=== PATIENT | female | born 1955 | race Caucasian/White ===

== ENCOUNTER 2017-08-23 09:28 | Emergency (ER) | payer OTHER ==
[~2017-08-23] VITALS: Ht 167.6 cm; Wt 70.0 kg
[~2017-08-23 09:28] MED LIST: ALBU0.086 INH; ASPI325T PO; ATOR40TA49 PO; AZIT250T43 PO; HYDR200T42 PO; METH2.5 PO; METO25 PO; PRED50TA PO; PROT40TA PO; TRAZ50TA4 PO
[2017-08-23 09:36] VITALS: BP 135/77; PULSE 87; RESP 16; TEMP 98; O2SAT 97
[2017-08-23] MEDS ORDERED: ASPI81CH7 CHEW (09:46)
[2017-08-23] MEDS ORDERED: LORA0.5T PO (09:46)
[2017-08-23] MEDS ORDERED: ALBU1.253 (09:46)
[2017-08-23] MEDS ORDERED: METH2.5T PO (09:46)
[2017-08-23] MEDS ORDERED: TRAZ50TA12 PO (09:46)
[2017-08-23] MEDS ORDERED: ATOR40TA16 PO (09:46)
[2017-08-23] MEDS ORDERED: PLAQ200T PO (09:46)
[2017-08-23] MEDS ORDERED: PROT40TA PO (09:46)
--- NOTE | 2017-08-23 09:53 | PD ---
HPI Chief Complaint: Injury Time Seen by Provider: 09:40 Travel History International Travel<30 days: No Contact w/Intl Traveler<30days: No Traveled to known affect area: No History of Present Illness HPI This is a 61-year-old female here with left foot pain and swelling after a mechanical trip and fall yesterday evening around 6 PM. She denies head injury or loss of consciousness. Patient is not anticoagulated. She reports pain, swelling within the foot. No other injuries. She is reporting pins and needle sensation within the foot. Pain is worse with movement and weightbearing and with acute distress. PFSH Past Medical History Arthritis: Yes (DUE TO LUPUS) Asthma: No Autoimmune Disease: Yes (LUPUS) Blood Disorders: No Anxiety: No Depression: No Heart Rhythm Problems: No Cancer: No Cardiovascular Problems: No High Cholesterol: Yes Chemotherapy: No Chest Pain: No Congestive Heart Failure: No COPD: Yes Cerebrovascular Accident: No Diabetes: No Patient Takes Glucophage: No Diminished Hearing: No Gastrointestinal Disorders: No GERD: Yes Genitourinary: No Headaches: No Hepatitis: No Hiatal Hernia: No Hypertension: No Kidney Stones: No Musculoskeletal: No Neurologic: No Psychiatric: No Reproductive: No Respiratory: Yes (COPD) Myocardial Infarction: No Radiation Therapy: No Renal Failure: No Seizures: No Thyroid Disease: No Ulcer: No ?: Not Past Surgical History Abdominal Surgery: Yes (APPENDECTOMY 1982) AICD: No Appendectomy: Yes Section: Yes Genitourinary Surgery: No Hysterectomy: Yes Pacemaker: No Thoracic Surgery: No Other Surgery: Yes (FEET) Social History Alcohol Use: No Tobacco Use: No Substance Use: No Allergies-Medications (Allergen,Severity, Reaction): Coded Allergies: Sulfa (Sulfonamide Antibiotics) (Verified Adverse Reaction, Intermediate, DIARRHEA, 08/23/17) Reported Meds & Prescriptions Reported Meds & Active Scripts Active Reported Lorazepam 0.5 Mg Tab 0.5 Mg PO Q8H PRN Trazodone (Trazodone HCl) 50 Mg Tab 25 Mg PO HS Protonix (Pantoprazole Sodium) 40 Mg Tab 40 Mg PO DAILY Methotrexate 2.5 Mg Tab 7.5 Mg PO Q7D Plaquenil (Hydroxychloroquine Sulfate) 200 Mg Tab 200 Mg PO BID Take with food Atorvastatin (Atorvastatin Calcium) 40 Mg Tab 40 Mg PO HS Aspirin Children's (Aspirin) 81 Mg Chew 81 Mg CHEW DAILY [Albuterol Sulfate] Review of Systems Except as stated in HPI: all other systems reviewed are Neg Physical Exam Narrative GENERAL: Alert and well-appearing 61-year-old female. SKIN: Warm and dry. HEAD: Normocephalic. Atraumatic EYES: No scleral icterus. No injection or drainage. NECK: Supple, trachea midline. No cervical midline tenderness. CARDIOVASCULAR: Regular rate and rhythm without murmurs, gallops, or rubs. RESPIRATORY: Breath sounds equal bilaterally. No accessory muscle use. GASTROINTESTINAL: Abdomen soft, non-tender, nondistended. MUSCULOSKELETAL: No cyanosis. Left lower extremity: Notable swelling and ecchymosis to the left foot dorsal aspect. 2+ dorsal pedis pulse. Decreased sensation to fine touch in the toes. Sharp touch intact. Extremity is warm. Brisk cap refill. BACK: Nontender without obvious deformity. No CVA tenderness. Data Data Last Documented VS Vital Signs Date Time Temp Pulse Resp B/P (MAP) Pulse Ox O2 Delivery O2 Flow Rate FiO2 08/23/17 09:36 98.0 87 16 135/77 (96) 97 Orders Orders Foot, Complete ([id number]) (08/23/17 ) Splint Or Brace Apply/Monitor (08/23/17 10:28) MDM Medical Decision Making Medical Screen Exam Complete: Yes Emergency Medical Condition: Yes Differential Diagnosis Metatarsal fracture, ligamental/tendon injury, midfoot sprain, Narrative Course 61-year-old female here with left foot pain and swelling after a mechanical trip and fall last night. She does have mild decreased sensation to light touch to the toes. Sharp touch remains intact. Extremity is warm. 2+ dorsal pedis pulse. Brisk cap refill. Able to wiggle his toes. X-ray shows proximal phalanx fracture of the fifth toe. I believe she has significant midfoot sprain as well. She'll be put in a short posterior leg splint and instructed to follow-up with her manager title Dr. Ricks this week. She agrees to plan. Diagnosis Primary Impression: Toe fracture Qualified Codes: S92.512A - Displaced fracture of proximal phalanx of left lesser toe(s), initial encounter for closed fracture Additional Impression: Foot sprain Qualified Codes: S93.602A - Unspecified sprain of left foot, initial encounter Referrals: Renal Dialysis Technician Additional Instructions: Ice and elevate the extremity Follow-up with her manager title. Return to emergency department if he developed new or worsening symptoms as discussed. Disposition: 01 DISCHARGE HOME Condition: Stable Madiha Scott Aug 23, 2017 09:53
--- NOTE | 2017-08-23 10:18 | RADRPT ---
EXAM DATE/TIME: 08/23/2017 09:46 [facility] COMPARISON: No previous studies available for comparison. INDICATIONS : Top and lateral side of left foot pain and bruising, tripped and fell last night. MEDICAL HISTORY : left foot fracture SURGICAL HISTORY : multiple surgeries to left foot ENCOUNTER: Initial ACUITY: 2 days PAIN SCORE: 10/10 LOCATION: Left top and lateral foot FINDINGS: 3 views of the left foot. There is a fracture of the proximal pole of the fifth toe proximal phalanx with 1 mm step-off seen at the lateral cortex. Deformity of the great toe proximal phalanx likely rep resenting sequela of old trauma or arthrosis. There are moderate-sized osteophytes of the great toe m etatarsophalangeal joint along with a central subchondral cyst of the great toe metatarsal head measu ring 9 mm. Widening of the great toe MTP joint suggests chronic bone erosion. There is also evidence of chronic bone erosion and widening of the second toe proximal interphalangeal joint CONCLUSION: 1. Fifth toe proximal phalanx fracture with 1 mm displacement. 2. 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 Mauro Salvador MD on August 23, 2017 at 10:10 Board Certified Radiologist. This report was verified electronically.
== END 2017-08-23 11:28 | disposition home or self-care (01) ==
LOC: PHEFT 09:28
DX: S92.512A Displaced fracture of proximal phalanx of left lesser toe(s), initial encounter for closed fracture (principal); S93.602A Unspecified sprain of left foot, initial encounter; R20.2 Paresthesia of skin; E78.00 Pure hypercholesterolemia, unspecified; K21.9 Gastro-esophageal reflux disease without esophagitis; Z87.39 Personal history of other diseases of the musculoskeletal system and connective tissue; Z86.2 Personal history of diseases of the blood and blood-forming organs and certain disorders involving the immune mechanism; W01.0XXA Fall on same level from slipping, tripping and stumbling without subsequent striking against object, initial encounter
CPT/HCPCS: 29515; 73630; 99283; E0113

== ENCOUNTER 2017-09-07 16:10 | Inpatient (IN) | payer OTHER, MEDICARE ==
[~2017-09-07] VITALS: Ht 170.2 cm; Wt 68.3 kg
[~2017-09-07 16:10] MED LIST changes: -ALBU0.086 INH; +ALBU1.253; -ASPI325T PO; +ASPI81CH7 CHEW; +ATOR40TA16 PO; -ATOR40TA49 PO; -AZIT250T43 PO; -HYDR200T42 PO; +LORA0.5T PO; -METH2.5 PO; +METH2.5T PO; -METO25 PO; +PLAQ200T PO; -PRED50TA PO; +TRAZ50TA12 PO; -TRAZ50TA4 PO
[2017-09-07 16:12] VITALS: BP 185/87; PULSE 82; RESP 14; TEMP 98.5; O2SAT 97
[2017-09-07] MEDS ORDERED: SODIUM CHLORIDE 0.9% FLUSH 10 ML FLUSH IV FLUSH PRN (20:15)
[2017-09-07] MEDS ORDERED: MORPHINE SULFATE 2 MG/ML INJ IV PUSH ONE ×2 (20:15→23:45)
--- NOTE | 2017-09-07 20:26 | PD ---
HPI Chief Complaint: Pain: Acute or Chronic Time Seen by Provider: 20:04 Travel History International Travel<30 days: No Contact w/Intl Traveler<30days: No Traveled to known affect area: No History of Present Illness HPI 61-year-old female who was seen in the emergency department on 08/23/17 and diagnosed with a left fifth toe proximal phalanx fracture with 1 mm displacement from an injury that occurred the day prior, sent here by podiatry for evaluation of increasing pain and swelling to the left foot. Patient reports that she was seen by lens coating technician Dr. Tse on Sunday09/03/17 and it was noted that she had foot swelling at that time. Outpatient MRIs were ordered, however the patient has not yet received insurance approval to have this test done. She reports that since around 2:30 this morning she has had increasing pain to the left foot. She rates the pain as 14 out of 10, constant, worse with movements. She also states that her foot and toes feel numb. She denies any recent injuries other than the fall on 08/23/17. She called her lens coating technician office in the on-call lens coating technician recommended that she present to the emergency department for evaluation. Patient denies history of DVT or PE. No chest pain or dyspnea. She has kept her splint in place and has been using a compression stocking on the left foot/ankle/leg. PFSH Past Medical History Arthritis: Yes (DUE TO LUPUS) Asthma: No Autoimmune Disease: Yes (LUPUS) Blood Disorders: No Anxiety: No Depression: No Heart Rhythm Problems: No Cancer: No Cardiovascular Problems: No High Cholesterol: Yes Chemotherapy: No Chest Pain: No Congestive Heart Failure: No COPD: Yes Cerebrovascular Accident: No Diabetes: No Diminished Hearing: No Gastrointestinal Disorders: No GERD: Yes Genitourinary: No Headaches: No Hepatitis: No Hiatal Hernia: No Hypertension: No Kidney Stones: No Musculoskeletal: No Neurologic: No Psychiatric: No Reproductive: No Respiratory: Yes (COPD) Myocardial Infarction: No Radiation Therapy: No Renal Failure: No Seizures: No Thyroid Disease: No Ulcer: No Past Surgical History Abdominal Surgery: Yes (APPENDECTOMY 1982) AICD: No Appendectomy: Yes Section: Yes Genitourinary Surgery: No Hysterectomy: Yes Pacemaker: No Thoracic Surgery: No Other Surgery: Yes (FEET) Social History Alcohol Use: No Tobacco Use: No Substance Use: No Allergies-Medications (Allergen,Severity, Reaction): Coded Allergies: Sulfa (Sulfonamide Antibiotics) (Verified Adverse Reaction, Intermediate, DIARRHEA, 08/23/17) Reported Meds & Prescriptions Reported Meds & Active Scripts Active Reported Lorazepam 0.5 Mg Tab 0.5 Mg PO Q8H PRN Trazodone (Trazodone HCl) 50 Mg Tab 25 Mg PO HS Protonix (Pantoprazole Sodium) 40 Mg Tab 40 Mg PO DAILY Methotrexate 2.5 Mg Tab 7.5 Mg PO Q7D Plaquenil (Hydroxychloroquine Sulfate) 200 Mg Tab 200 Mg PO BID Take with food Atorvastatin (Atorvastatin Calcium) 40 Mg Tab 40 Mg PO HS Aspirin Children's (Aspirin) 81 Mg Chew 81 Mg CHEW DAILY [Albuterol Sulfate] Review of Systems Except as stated in HPI: all other systems reviewed are Neg Physical Exam Narrative GENERAL: Well-developed, well-nourished, pleasant, comfortable, no apparent distress. SKIN: Focused skin assessment warm/dry. Dorsum of left foot with diffuse ecchymosis. HEAD: Atraumatic. Normocephalic. EYES: Pupils equal and round. No scleral icterus. No injection or drainage. ENT: No nasal bleeding or discharge. Mucous membranes pink and moist. CARDIOVASCULAR: Regular rate and rhythm. Bilateral dorsalis pedis pulses are brisk and equal. RESPIRATORY: No accessory muscle use. Clear to auscultation. Breath sounds equal bilaterally. MUSCULOSKELETAL: Left foot with diffuse swelling with ecchymosis over the dorsum of the foot, no warmth or erythema, no crepitus. Left second and third toes are fused from a surgery several years ago. All compartments in the left foot appear to be supple, however the patient has diffuse tenderness on exam. She also reports diminished sensation in her foot and toes. Bilateral dorsalis pedis pulses are brisk and equal. Bilateral feet are warm with normal appearing capillary refill. Bilateral calves are supple, nontender, no edema in the calves. NEUROLOGICAL: Awake and alert. No obvious cranial nerve deficits. Motor grossly within normal limits. Normal speech. PSYCHIATRIC: Appropriate mood and affect; insight and judgment normal. Data Data Last Documented VS Vital Signs Date Time Temp Pulse Resp B/P (MAP) Pulse Ox O2 Delivery O2 Flow Rate FiO2 09/07/17 22:28 09/07/17 22:28 98 Room Air 09/07/17 21:35 20 09/07/17 16:12 98.5 82 Orders Orders Basic Metabolic Panel (Bmp) (09/07/17 20:13) Complete Blood Count With Diff (09/07/17 20:13) Prothrombin Time / Inr (Pt) (09/07/17 20:13) Act Partial Throm Time (Ptt) (09/07/17 20:13) Iv Access Insert/Monitor (09/07/17 20:13) Ecg Monitoring (09/07/17 20:13) Oximetry (09/07/17 20:13) Sodium Chloride 0.9% Flush (Ns Flush) (09/07/17 20:15) Us Leg Venous Doppler (09/07/17 ) Ankle, Complete ([id number]) (09/07/17 ) Mri Foot W&W/O Contrast (09/07/17 ) Mri Joint Ankle W&W/O Contrast (09/07/17 ) Creatine Kinase (Cpk) (09/07/17 20:13) Morphine Inj (Morphine Inj) (09/07/17 20:15) Gadodiamide Pf Inj (Omniscan Pf Inj) (09/07/17 22:20) Vancomycin Inj (Vancomycin Inj) (09/07/17 23:45) Piperacil-Tazo 4.5 Gm Premix (Zosyn 4.5 (09/07/17 23:45) Morphine Inj (Morphine Inj) (09/07/17 23:45) Admit Order (Ed Use Only) (09/07/17 23:55) Consult Podiatry (09/07/17 ) Labs Laboratory Tests Test 09/07/17 21:00 White Blood Count 6.9 TH/MM3 Red Blood Count 4.17 MIL/MM3 Hemoglobin 12.3 GM/DL Hematocrit 36.2 % Mean Corpuscular Volume 86.9 FL Mean Corpuscular Hemoglobin 29.5 PG Mean Corpuscular Hemoglobin Concent 33.9 % Red Cell Distribution Width 14.7 % Platelet Count 287 TH/MM3 Mean Platelet Volume 9.4 FL Neutrophils (%) (Auto) 52.3 % Lymphocytes (%) (Auto) 33.5 % Monocytes (%) (Auto) 12.1 % Eosinophils (%) (Auto) 1.2 % Basophils (%) (Auto) 0.9 % Neutrophils # (Auto) 3.6 TH/MM3 Lymphocytes # (Auto) 2.3 TH/MM3 Monocytes # (Auto) 0.8 TH/MM3 Eosinophils # (Auto) 0.1 TH/MM3 Basophils # (Auto) 0.1 TH/MM3 CBC Comment DIFF FINAL Differential Comment Prothrombin Time 11.6 SEC Prothromb Time International Ratio 1.1 RATIO Activated Partial Thromboplast Time 26.1 SEC Blood Urea Nitrogen 9 MG/DL Creatinine 0.92 MG/DL Random Glucose 87 MG/DL Calcium Level 9.5 MG/DL Sodium Level 139 MEQ/L Potassium Level 3.5 MEQ/L Chloride Level 103 MEQ/L Carbon Dioxide Level 29.8 MEQ/L Anion Gap 6 MEQ/L Estimat Glomerular Filtration Rate 62 ML/MIN Total Creatine Kinase 129 U/L [facility] Medical Decision Making Medical Screen Exam Complete: Yes Emergency Medical Condition: Yes Differential Diagnosis Hematoma, edema, compartment syndrome, DVT, left foot/ankle sprain Narrative Course Shortly after I assessed the patient, discussed the case with on-call lens coating technician Dr. Brewer who agrees with my plan for labs and MRI. Once these studies are performed, I will contact her with the results. Vital signs show heart rate 82, blood pressure 185/87, pulse ox 97% on room air , oral temp of 98.5F. CBC is unremarkable. BMP is unremarkable. Total CK is 129. Left ankle x-ray: Soft tissue swelling over the lateral malleolus. No acute fracture or joint dislocation. Left lower extremity venous duplex is negative for DVT. MRI left ankle: CONCLUSION: 1. There is diffuse nonspecific edema in the subcutaneous soft tissues that surrounding the ankle. 2. There is normal signal within the bony structures. No evidence of osteomyelitis. MRI left foot: CONCLUSION: 1. Possible osteomyelitis in the fifth metatarsal with marrow edema and some marrow enhancement postcontrast. Patchy marrow edema also present at other locations in the foot without significant marrow enhancement to suggest osteomyelitis. There is soft tissue swelling and some enhancement in the lateral foot possibly related to traumatic injury or inflammatory change. Case again discussed with on-call lens coating technician Dr. Brewer. Patient was given 4 mg of IV morphine with only minimal relief of pain. Again her compartments appear soft. On exam there did not appear to be any open wounds, and the patient denies sustaining any open wounds at the time of her injury on 08/22/17. Plan is to start the patient on IV vancomycin and IV Zosyn and have her admitted for overnight observation for further pain management for uncontrolled left foot pain. Dr. Brewer will evaluate the patient in consultation. Diagnosis Primary Impression: Edema of left foot Additional Impressions: Intractable pain R/O Osteomyelitis Admitting Information Admitting Physician Requests: Observation Go Bryson MD Sep 07, 2017 20:25
--- NOTE | 2017-09-07 20:46 | RADRPT ---
EXAM DATE/TIME: 09/07/2017 20:34 [facility] COMPARISON: No previous studies available for comparison. INDICATIONS : Patient complains of left ankle pain and swelling after fracturing 5th digit on left foot one week ag o. MEDICAL HISTORY : None. SURGICAL HISTORY : None. ENCOUNTER: Initial ACUITY: 1 week PAIN SCORE: 10/10 LOCATION: Left Ankle FINDINGS: Three view exam was performed of the left ankle. The bony structures are in normal alignment. No ev idence of fracture, dislocation. There is soft tissue swelling over the lateral malleolus. The ankle mortise is intact. No radiopaque foreign bodies are seen. Bony mineralization is normal. CONCLUSION: Soft tissue swelling over the lateral malleolus. No acute fracture or joint dislocation. Nikolas Guerrero MD on September 07, 2017 at 20:42 Board Certified Radiologist. This report was verified electronically.
[2017-09-07 21:27] LABS: AUTOMATED NEUTROPHIL # 3.6 TH/MM3 (1.8-7.7); BASOPHIL % 0.9 % (0.0-2.0); EOSINOPHIL % 1.2 % (0.0-4.0); HEMATOCRIT 36.2 % (35.0-46.0); HEMOGLOBIN 12.3 GM/DL (11.6-15.3); LYMPH % 33.5 % (9.0-44.0); LYMPHOCYTE # 2.3 TH/MM3 (1.0-4.8); MEAN CELL VOLUME 86.9 FL (80.0-100.0); MEAN CORPUSCULAR HEMOGLOBIN 29.5 PG (27.0-34.0); MEAN CORPUSCULAR HGB CONC 33.9 % (32.0-36.0); MEAN PLATELET VOLUME 9.4 FL (7.0-11.0); MONO % 12.1 % (0.0-8.0); NEUT % 52.3 % (16.0-70.0); PLATELET COUNT 287 TH/MM3 (150-450); RED BLOOD COUNT 4.17 MIL/MM3 (4.00-5.30); RED CELL DISTRIBUTION WIDTH 14.7 % (11.6-17.2); WHITE BLOOD COUNT 6.9 TH/MM3 (4.0-11.0)
[2017-09-07 21:28] LABS: BASOPHIL # 0.1 TH/MM3 (0-0.2); EOSINOPHIL # 0.1 TH/MM3 (0-0.4); MONOCYTE # 0.8 TH/MM3 (0-0.9)
--- NOTE | 2017-09-07 21:33 | RADRPT ---
EXAM DATE/TIME: 09/07/2017 20:59 [facility] COMPARISON: No previous studies available for comparison. INDICATIONS : Left leg swelling. MEDICAL HISTORY : Chronic obstructive pulmonary disease. Hypercholesterolemia. Gastroesophageal reflux disease. Glas ses. Dyspnea. Arthritis. Lupus. SURGICAL HISTORY : Appendectomy. Hysterectomy. section. Foot surgery. ENCOUNTER: Initial ACUITY: 2 weeks PAIN SCORE: 2/10 LOCATION: Left leg. TECHNIQUE: Venous ultrasound of the leg was performed from the inguinal ligament to the proximal calf. Real-reji e, color Doppler and spectral tracing, compression and augmentation techniques were used. FINDINGS: There is normal compressibility of the deep venous system from the inguinal region to the proximal ca lf. No echogenic clot is seen in the lumen of the common femoral, femoral, popliteal, and posterior tibial veins. There is a normal response of the venous system to proximal and distal augmentation an d respiration. CONCLUSION: No evidence of DVT. Nikolas Guerrero MD on September 07, 2017 at 21:30 Board Certified Radiologist. This report was verified electronically.
[2017-09-07 21:36] LABS: INTERNATIONAL NORMALIZED RATIO 1.1 RATIO; PROTHROMBIN TIME - PATIENT 11.6 SEC (9.8-11.6)
[2017-09-07 21:42] LABS: BICARBONATE 29.8 MEQ/L (21.0-32.0); CALCIUM 9.5 MG/DL (8.5-10.1); CREATININE 0.92 MG/DL (0.50-1.00)
[2017-09-07] MEDS ORDERED: GADODIAMIDE PF 287 MG/ML 5 ML VIAL (for RAD MRI) IV PUSH ONE (22:20)
[2017-09-07 22:28] VITALS: O2SAT 98
--- NOTE | 2017-09-07 22:56 | RADRPT ---
EXAM DATE/TIME: 09/07/2017 22:03 [facility] COMPARISON: ANKLE LEFT COMPLETE ([id number]), September 07, 2017, 20:34. INDICATIONS : Osteomyelitis. CONTRAST: 14 cc Omniscan (gadodiamide) IV MEDICAL HISTORY : Lupus. Chronic obstructive pulmonary disease. SURGICAL HISTORY : Hysterectomy. section. Multiple bi-lateral foot surgeries. ENCOUNTER: Subsequent ACUITY: 2 weeks PAIN SCORE: 7/10 LOCATION: Left ankle. TECHNIQUE: Multiplanar, multisequence MRI examination was performed without contrast and after the intravenous a dministration of gadolinium. FINDINGS: BONE/CARTILAGE: Bone marrow signal is homogeneous. Articular cartilage signal is within normal limits. TENDONS: All of the visualized tendons are intact. LIGAMENTS: The lateral and medial ligament complexes are intact. MISCELLANEOUS: There is nonspecific edema in the subcutaneous soft tissues that surrounds the ankle. The edema exten ds towards the foot. POST-CONTRAST: No abnormal areas of enhancement on the post-contrast images. CONCLUSION: 1. There is diffuse nonspecific edema in the subcutaneous soft tissues that surrounding the ankle. 2. There is normal signal within the bony structures. No evidence of osteomyelitis. Nikolas Guerrero MD on September 07, 2017 at 22:51 Board Certified Radiologist. This report was verified electronically.
--- NOTE | 2017-09-07 23:27 | RADRPT ---
EXAM DATE/TIME: 09/07/2017 22:03 [facility] COMPARISON: No previous studies available for comparison. INDICATIONS : Osteomyelitis. CONTRAST: 14 cc Omniscan (gadodiamide) IV MEDICAL HISTORY : Lupus. Chronic obstructive pulmonary disease. SURGICAL HISTORY : Hysterectomy. section. Multiple bi-lateral foot surgeries. ENCOUNTER: Subsequent ACUITY: 2 weeks PAIN SCORE: 7/10 LOCATION: Left foot TECHNIQUE: Multiplanar, multisequence MRI examination was performed without contrast and after the intravenous a dministration of gadolinium. FINDINGS: There is a fracture of the proximal phalanx of the fifth toe seen on recent plain film. This is assoc iated with marrow edema. There is also some marrow edema in the fifth metatarsal associated with mild marrow enhancement. Patchy edema is also present in the fourth metatarsal. However no marrow enhance ment is seen. There is previous surgery near the first metatarsal head. There is some inflammatory and edematous changes in the lateral foot especially around fracture site. Cannot exclude a cellulitis. CONCLUSION: 1. Possible osteomyelitis in the fifth metatarsal with marrow edema and some marrow enhancement postc ontrast. Patchy marrow edema also present at other locations in the foot without significant marrow e nhancement to suggest osteomyelitis. There is soft tissue swelling and some enhancement in the latera l foot possibly related to traumatic injury or inflammatory change. Micky Velazco MD on September 07, 2017 at 23:13 Board Certified Radiologist. This report was verified electronically.
[2017-09-07] MEDS ORDERED: PIPERACIL-TAZO 4.5 GM PREMIX 100 ML IV ONE (23:45)
[2017-09-07] MEDS ORDERED: VANCOMYCIN INJ 1,000 MG in SODIUM CHLOR 0.9% 250 ML INJ 250 ML IV ONE (23:45)
[2017-09-08] VITALS (7 sets, daily range): BP systolic 108–137; BP diastolic 56–76; PULSE 68–77; RESP 16–20; TEMP 97.6–98.9; O2SAT 98–100
[2017-09-08] MEDS ORDERED: LACTULOSE SYRUP 20 GM/30 ML CUP PO PRN (00:15)
[2017-09-08] MEDS ORDERED: SODIUM CHLORIDE 0.9% FLUSH 10 ML FLUSH IV FLUSH PRN (00:15)
[2017-09-08] MEDS ORDERED: MAGNESIUM HYDROXIDE SUSP 30 ML CUP PO PRN (00:15)
[2017-09-08] MEDS ORDERED: ONDANSETRON HCL 4 MG/2 ML VIAL IVP PRN (00:15)
[2017-09-08] MEDS ORDERED: ACETAMINOPHEN 325 MG TAB PO PRN (00:15)
[2017-09-08] MEDS ORDERED: LORazepam 0.5 MG TAB PO PRN (00:15)
[2017-09-08] MEDS ORDERED: Vancomycin Consult Pharmacy 1 EA OTHER SCH (00:15)
[2017-09-08] MEDS ORDERED: SENNOSIDES 8.6 MG TAB PO PRN (00:15)
[2017-09-08] MEDS ORDERED: BISACODYL 10 MG SUPP RECTAL PRN (00:15)
[2017-09-08] MEDS ORDERED: ACETAMINOPHEN/HYDROcodone 325 MG/5 MG TAB PO PRN (00:15)
[2017-09-08] MEDS ORDERED: PILL SPLITTER OTHER PRN (00:30)
[2017-09-08] MEDS: SODIUM CHLOR 0.9% 1000 ML INJ 1,000 ML IV SCH ×2 (01:13→10:11)
--- NOTE | 2017-09-08 01:59 | HHI.HP ---
[facility] Service [facility] Primary Care Physician Shahzad Sawyer MD Admission Diagnosis intractable left foot pain with swelling, r/o osteomyelitis Diagnoses: (1) Osteomyelitis Diagnosis: Principal (2) Ankle pain Diagnosis: Principal (3) Lupus Diagnosis: Principal Travel History International Travel<30 Days: No Contact w/Intl Traveler <30 Da: No Traveled to Known Affected Are: No History of Present Illness This is a 61-year-old female with a PMH of HTN, Hyperlipidemia, COPD and Lupus who presented to ER with complaints of left foot pain and swelling. Seen in ER on 08/23/17 for similar symptoms, found to have left fifth toe fracture and placed in splint. Seen by Dr. Tse w/ Podiatry on 09/03/17 and was noted to have worsening swelling/pain, unable to undergo MRI as outpatient due to insurance authorization. Today, reports worsening pain. Pain is constant, 10/ 10, sharp, non-radiating, worse w/ movement. On arrival, BP 185/87, HR 82, O2 sat 97% on RA, Afebrile. Skin unremarkable. Chemistry essentially unremarkable except for GFR 62. INR 1.1. Ankle X-ray was soft tissue swelling over lateral malleolus. Ankle MRI with diffuse nonspecific edema. Foot MRI with possible osteomyelitis of fifth metatarsal with marrow edema and marrow enhancement. US LE negative for DVT. Dr. Skaggs consulted, recommended IV Abx w/ likely surgical intervention. Review of Systems Except as stated in HPI: all other systems reviewed are Neg ROS: 14 point review of systems otherwise negative. Past Family Social History Past Medical History PMH: HTN, Hyperlipidemia, COPD and Lupus Past Surgical History PAST SURGICAL HISTORY: Appendectomy , Hysterectomy Allergies: Coded Allergies: Sulfa (Sulfonamide Antibiotics) (Verified Adverse Reaction, Intermediate, DIARRHEA, 08/23/17) Family History PAST FAMILY HISTORY: Reviewed. No h/o DM or CAD Social History PAST SOCIAL HISTORY: Negative for alcohol, tobacco or drugs. Physical Exam Vital Signs Vital Signs Date Time Temp Pulse Resp B/P (MAP) Pulse Ox O2 Delivery O2 Flow Rate FiO2 09/08/17 00:44 09/08/17 00:22 77 17 123/59 (80) 98 Room Air 09/07/17 22:28 09/07/17 22:28 98 Room Air 09/07/17 21:35 20 09/07/17 16:12 98.5 82 14 185/87 (119) 97 Physical Exam PE: GENERAL: Pleasant middle-aged white female in no acute distress. HEENT: PERRLA, EOMI. No scleral icterus or conjunctival pallor. No lid lag or facial droop. CARDIOVASCULAR: Regular rate and rhythm. No obvious murmurs to auscultation. No chest tenderness to palpation. RESPIRATORY: No obvious rhonchi or wheezing. Clear to auscultation. Breath sounds equal bilaterally. GASTROINTESTINAL: Abdomen soft, non-tender, nondistended. BS normal. MUSCULOSKELETAL: Extremities without clubbing, cyanosis, or edema. No obvious deformities. Left foot w/ edema, no significant erythema, mild tenderness. Pulses intact. NEUROLOGICAL: Awake, alert and oriented x4. No focal neurologic deficits. Moving both upper and lower extremities spontaneously. Laboratory Laboratory Tests Test 09/07/17 21:00 White Blood Count 6.9 Red Blood Count 4.17 Hemoglobin 12.3 Hematocrit 36.2 Mean Corpuscular Volume 86.9 Mean Corpuscular Hemoglobin 29.5 Mean Corpuscular Hemoglobin Concent 33.9 Red Cell Distribution Width 14.7 Platelet Count 287 Mean Platelet Volume 9.4 Neutrophils (%) (Auto) 52.3 Lymphocytes (%) (Auto) 33.5 Monocytes (%) (Auto) 12.1 Eosinophils (%) (Auto) 1.2 Basophils (%) (Auto) 0.9 Neutrophils # (Auto) 3.6 Lymphocytes # (Auto) 2.3 Monocytes # (Auto) 0.8 Eosinophils # (Auto) 0.1 Basophils # (Auto) 0.1 CBC Comment DIFF FINAL Differential Comment Prothrombin Time 11.6 Prothromb Time International Ratio 1.1 Activated Partial Thromboplast Time 26.1 Blood Urea Nitrogen 9 Creatinine 0.92 Random Glucose 87 Calcium Level 9.5 Sodium Level 139 Potassium Level 3.5 Chloride Level 103 Carbon Dioxide Level 29.8 Anion Gap 6 Estimat Glomerular Filtration Rate 62 Total Creatine Kinase 129 Result Diagram: 09/07/17209909/07/172099 [facility] Risk Assessment Caprini VTE Risk Assessment: No/Low Risk (score <= 1) Caprini Risk Assessment Model Point Value = 1 Point Value = 2 Point Value = 3 Point Value = 5 Age 41-60 Minor surgery BMI > 25 kg/m2 Swollen legs Varicose veins or History of unexplained or recurrent spontaneous Oral contraceptives or hormone replacement Sepsis (< 1 month) Serious lung disease, including pneumonia (< 1 month) Abnormal pulmonary function Acute myocardial infarction Congestive heart failure (< 1 month) History of inflammatory bowel disease Medical patient at bed rest Age 61-74 Arthroscopic surgery Major open surgery (> 45 min) Laparoscopic surgery (> 45 min) Malignancy Confined to bed (> 72 hours) Immobilizing plaster cast Central venous access Age >= 75 History of VTE Family history of VTE Factor V Leiden Prothrombin [id number] Lupus anticoagulant Anticardiolipin antibodies Elevated serum homocysteine Heparin-induced thrombocytopenia Other congenital or acquired thrombophilia Stroke (< 1 month) Elective arthroplasty Hip, pelvis, or leg fracture Acute spinal cord injury (< 1 month) Prophylaxis Regimen Total Risk Factor Score Risk Level Prophylaxis Regimen 0-1 Low Early ambulation 2 Moderate Order ONE of the following: *Sequential Compression Device (SCD) *Heparin 5000 units SQ BID 3-4 Higher Order ONE of the following medications: *Heparin 5000 units SQ TID *Enoxaparin/Lovenox 40 mg SQ daily (WT < 150 kg, CrCl > 30 mL/min) *Enoxaparin/Lovenox 30 mg SQ daily (WT < 150 kg, CrCl > 10-29 mL/min) *Enoxaparin/Lovenox 30 mg SQ BID (WT < 150 kg, CrCl > 30 mL/min) AND/OR *Sequential Compression Device (SCD) 5 or more Highest Order ONE of the following medications: *Heparin 5000 units SQ TID (Preferred with Epidurals) *Enoxaparin/Lovenox 40 mg SQ daily (WT < 150 kg, CrCl > 30 mL/min) *Enoxaparin/Lovenox 30 mg SQ daily (WT < 150 kg, CrCl > 10-29 mL/min) *Enoxaparin/Lovenox 30 mg SQ BID (WT < 150 kg, CrCl > 30 mL/min) AND *Sequential Compression Device (SCD) Assessment and Plan Problem List: (1) Osteomyelitis ICD Code: M86.9 - Osteomyelitis, unspecified (2) Ankle pain ICD Code: M25.579 - Pain in unspecified ankle and joints of unspecified foot (3) Lupus ICD Code: L93.0 - Discoid lupus erythematosus Assessment and Plan A/P: 1. Osteomyelitis: c/o worsening edema left foot, referred to ER by Podiatry. MRI Foot w/ possible ostium myelitis fifth metatarsal with marrow edema images reviewed by me. S/p eval by Dr. Skaggs, recommendation for IV Abx and likely surgical intervention. Continue w/ IV Vanc/Zosyn, IVF, NPO, analgesics/ antiemetics as needed. 2. Ankle Pain: reports ongoing ankle pain x2 wks, Ankle X-ray w/ soft tissue swelling over lateral malleolus, no acute fracture. Ankle MRI with diffuse nonspecific edema surrounding the ankle, no evidence of osteomyelitis, images reviewed by me. Analgesics/antiemetics as needed. 3. Lupus: Chronic. Resume home medications. 4. DVT Prophylaxis: Mechanical contraindication secondary to osteomyelitis, anticoagulation post op 5. Social work for d/c planning as needed. 6. Case discussed w/ ER physician at length, labs/records/imaging reviewed by me Physician Certification 2 Midnight Certification Type: Admission for Inpatient Services Order for Inpatient Services The services are ordered in accordance with Medicare regulations or non- Medicare payer requirements, as applicable. In the case of services not specified as inpatient-only, they are appropriately provided as inpatient services in accordance with the 2-midnight benchmark. Estimated LOS (days): 2 days is the estimated time the patient will need to remain in the hospital, assuming treatment plan goals are met and no additional complications. Post-Hospital Plan: Not yet determined Lizzie Appiah MD Sep 08, 2017 01:58
[2017-09-08] MEDS ORDERED: PIPERACIL-TAZO 4.5 GM PREMIX 100 ML IV SCH (03:00)
[2017-09-08] MEDS: MORPHINE SULFATE 2 MG/ML INJ IV PUSH PRN ×3 (03:26→09:24)
[2017-09-08] MEDS: PIPERACIL-TAZO 4.5 GM PREMIX 100 ML IV SCH ×3 (05:59→17:29)
--- NOTE | 2017-09-08 06:49 | PD.CONS ---
History of Present Illness Service foot and ankle surgery/podiatry Consult Requested By Dr. Bryson Reason for Consult left foot and ankle increasing pain and swelling Primary Care Physician Shahzad Sawyer MD Diagnoses: History of Present Illness Podiatry consult for 61-year-old female with past medical history of hypertension, hyperlipidemia, COPD and lupus who presented to the emergency department with concern left foot pain and swelling. She was seen in the ER August 23, 2017 for similar symptoms and was found to have a left fifth digit fracture she was placed in a splint. She was seen in office every 50,018 and she complained of worsening swelling and pain she was denied an outpatient MRI by her primary care. she continues to have pain and swelling therefore she presented to the ED. Review of Systems Constitutional: DENIES: Fever, Weight loss, Chills Eyes: DENIES: Blurred vision Respiratory: DENIES: Cough, Shortness of breath Cardiovascular: DENIES: Chest pain Gastrointestinal: DENIES: Constipation, Diarrhea, Nausea, Vomiting Musculoskeletal: COMPLAINS OF: Muscle aches, Stiffness Integumentary: DENIES: Abnormal pigmentation Hematologic/lymphatic: COMPLAINS OF: Bruising Neurologic: DENIES: Abnormal gait Psychiatric: DENIES: Anxiety, Confusion Past Family Social History Allergies: Coded Allergies: Sulfa (Sulfonamide Antibiotics) (Verified Adverse Reaction, Intermediate, DIARRHEA, 08/23/17) Past Medical History As dictated in the HPI Active Ordered Medications Current Medications Medications (Trade) Dose Ordered Sig/Cheri Route Start Time Stop Time Status Last Admin Pharmacy Profile Note 0 ml @ 0 mls/hr UNSCH OTHER 09/08/17 00:15 Sodium Chloride 1,000 ml @ 100 mls/hr Q10H IV 09/08/17 00:07 09/08/17 01:13 (NS Flush) 2 ml UNSCH PRN IV FLUSH 09/08/17 00:15 (NS Flush) 2 ml BID IV FLUSH 09/08/17 09:00 (Zofran Inj) 4 mg Q6H PRN IVP 09/08/17 00:15 (Tylenol) 650 mg Q6H PRN PO 09/08/17 00:15 (Fortuna 5-325 Mg) 1 tab Q4H PRN PO 09/08/17 00:15 (Morphine Inj) 2 mg Q3H PRN IV PUSH 09/08/17 00:15 09/08/17 06:07 (Ann-Colace) 1 tab BID PO 09/08/17 09:00 (Milk Of Magnesia Liq) 30 ml Q12H PRN PO 09/08/17 00:15 (Senokot) 17.2 mg Q12H PRN PO 09/08/17 00:15 (Dulcolax Supp) 10 mg DAILY PRN RECTAL 09/08/17 00:15 (Lactulose Liq) 30 ml DAILY PRN PO 09/08/17 00:15 (Lipitor) 40 mg HS PO 09/08/17 21:00 (Plaquenil) 200 mg BID PO 09/08/17 09:00 (Ativan) 0.5 mg Q8H PRN PO 09/08/17 00:15 (Protonix) 40 mg DAILY PO 09/08/17 09:00 (Desyrel) 25 mg HS PO 09/08/17 21:00 Piperacillin Sod/ Tazobactam Sod 100 ml @ 200 mls/hr Q6HR IV 09/08/17 06:00 09/08/17 05:59 (Pill Splitter) 1 ea UNSCH PRN OTHER 09/08/17 00:30 Physical Exam Vital Signs Vital Signs Date Time Temp Pulse Resp B/P (MAP) Pulse Ox O2 Delivery O2 Flow Rate FiO2 09/08/17 00:44 09/08/17 00:22 77 17 123/59 (80) 98 Room Air 09/07/17 22:28 09/07/17 22:28 98 Room Air 09/07/17 21:35 20 09/07/17 16:12 98.5 82 14 185/87 (119) 97 Physical Exam GENERAL: This is a well-nourished, well-developed patient, in no apparent distress. SKIN: ecchymosis noted to left foot HEAD: Atraumatic. Normocephalic EYES: Pupils equal round and reactive. ENT: Airway patent. NECK: Trachea midline. RESPIRATORY: nonlabored breathing MUSCULOSKELETAL: No calf tenderness. Negative Homans sign bilaterally. NEUROLOGICAL: Awake and alert. Normal speech. patient seems to be resting comfortably in the room. Vascular: DP/ PT palpable 2/4. Capillary refill time under 3 seconds to all digits of the left foot. Edema noted to left foot and ankle. Neuro: No hyperalgesia noted. Gross sensation intact. Reported dullness to left lower extremity. Derm: No open lesions normal temperature turgor left lower extremity. Cicatrix Noted to left lower extremity from previous surgery MSK: active passive dorsiflexion plantar flexion of digits to left foot. Manual muscle testing with guarding however strength intact. Pain on palpation to the tarsometatarsal joint as well as lateral ankle at CFL and ATFL. Laboratory Laboratory Tests Test 09/07/17 21:00 White Blood Count 6.9 Red Blood Count 4.17 Hemoglobin 12.3 Hematocrit 36.2 Mean Corpuscular Volume 86.9 Mean Corpuscular Hemoglobin 29.5 Mean Corpuscular Hemoglobin Concent 33.9 Red Cell Distribution Width 14.7 Platelet Count 287 Mean Platelet Volume 9.4 Neutrophils (%) (Auto) 52.3 Lymphocytes (%) (Auto) 33.5 Monocytes (%) (Auto) 12.1 Eosinophils (%) (Auto) 1.2 Basophils (%) (Auto) 0.9 Neutrophils # (Auto) 3.6 Lymphocytes # (Auto) 2.3 Monocytes # (Auto) 0.8 Eosinophils # (Auto) 0.1 Basophils # (Auto) 0.1 CBC Comment DIFF FINAL Differential Comment Prothrombin Time 11.6 Prothromb Time International Ratio 1.1 Activated Partial Thromboplast Time 26.1 Blood Urea Nitrogen 9 Creatinine 0.92 Random Glucose 87 Calcium Level 9.5 Sodium Level 139 Potassium Level 3.5 Chloride Level 103 Carbon Dioxide Level 29.8 Anion Gap 6 Estimat Glomerular Filtration Rate 62 Total Creatine Kinase 129 Result Diagram: 09/07/17 2100 09/07/17 2100 Imaging Last Impressions Lower Extremity Ultrasound 09/07/17 0000 Signed Impressions: Service Date/Time: Thursday, September 07, 2017 20:59 - CONCLUSION: No evidence of DVT. Nikolas Guerrero MD Foot MRI 09/07/17 0000 Signed Impressions: Service Date/Time: Thursday, September 07, 2017 22:03 - CONCLUSION: 1. Possible osteomyelitis in the fifth metatarsal with marrow edema and some marrow enhancement postcontrast. Patchy marrow edema also present at other locations in the foot without significant marrow enhancement to suggest osteomyelitis. There is soft tissue swelling and some enhancement in the lateral foot possibly related to traumatic injury or inflammatory change. Micky Velazco MD Ankle X-Ray 09/07/17 0000 Signed Impressions: Service Date/Time: Thursday, September 07, 2017 20:34 - CONCLUSION: Soft tissue swelling over the lateral malleolus. No acute fracture or joint dislocation. Nikolas Guerrero MD Ankle MRI 09/07/17 0000 Signed Impressions: Service Date/Time: Thursday, September 07, 2017 22:03 - CONCLUSION: 1. There is diffuse nonspecific edema in the subcutaneous soft tissues that surrounding the ankle. 2. There is normal signal within the bony structures. No evidence of osteomyelitis. Nikolas Guerrero MD Assessment and Plan Assessment and Plan 61-year-old female with left lower extremity edema secondary to trauma patient examined and evaluated with all questions answered MRI suspicious for osteomyelitis fifth digit Low index of suspicion for osteomyelitis as patient as an does not have a history of open wound and does have a history of recent right fifth digit fracture Low index of suspicion for compartment syndrome, if no improvement noted will consider a compartment check Salvador compression applied to left lower extremity Continue pain control Recommend fracture boot for patient Nonweightbearing to the left lower extremity Patient to be DC after 23 hour observation, does not need outpatient antibiotics If patient is still in-house afternoon will re evaluate Jaja Brewer DPM Sep 08, 2017 06:49
[2017-09-08] MEDS: SODIUM CHLORIDE 0.9% FLUSH 10 ML FLUSH IV FLUSH SCH ×2 (08:09→21:00)
[2017-09-08] MEDS: DOCUSATE SODIUM 50 MG/SENNA 8.6 MG TAB PO SCH ×2 (08:09→21:00)
[2017-09-08] MEDS: PANTOPRAZOLE SOD 40 MG DELAYED RELEASE TAB PO SCH ×2 (08:10→10:09)
[2017-09-08] MEDS: HYDROXYCHLOROQUINE SULFATE 200 MG TAB PO SCH ×2 (10:09→21:28)
[2017-09-08] MEDS ORDERED: MORPHINE SULFATE 2 MG/ML INJ SQ PRN (10:45)
[2017-09-08] MEDS: MORPHINE SULFATE 4 MG/ML INJ IV PUSH PRN ×2 (13:45→21:29)
--- NOTE | 2017-09-08 16:04 | HHI.PR ---
Addendum to Inpatient Note Addendum Reason: Additional Documentation Additional Information The patient complains of pain in the left lower extremity. Patient rates her pain as 10/10 although she looks comfortable in no acute distress. Lungs are clear bilaterally, abdomen is soft. The patient has been evaluated by orthopedic surgery who states although MRI suspicious for osteomyelitis of the fifth digit, she has low index of suspicion of osteomyelitis as patient does not have a history of open wound and does have a history of recent right fifth digit fracture. Podiatry also states there is low index of suspicion for compartment syndrome. However patient still complains of pain and edema. Lower extremity ultrasound ruled out DVT. For MRI as stated previously is concerning for osteomyelitis. Follow-up with retroconal recommendations. I will add Oramorph sustained release 15 mg p.o. twice daily and continue IV morphine for now for pain control. Annad Berg MD Sep 08, 2017 16:04
[2017-09-08] MEDS ORDERED: traZODone HCL 50 MG TAB PO SCH (21:00)
[2017-09-08] MEDS ORDERED: ATORVASTATIN 40 MG TAB PO SCH (21:00)
[2017-09-09] VITALS: BP 124/60; PULSE 77; RESP 18; TEMP 98.5; O2SAT 98
[2017-09-09] MEDS ORDERED: VANCOMYCIN INJ 1,250 MG in SODIUM CHLOR 0.9% 250 ML INJ 250 ML IV SCH (01:00)
[2017-09-09] MEDS: PIPERACIL-TAZO 4.5 GM PREMIX 100 ML IV SCH ×2 (01:05→06:50)
[2017-09-09] MEDS: SODIUM CHLOR 0.9% 1000 ML INJ 1,000 ML IV SCH (02:01)
[2017-09-09 04:00] VITALS: BP 116/57; PULSE 75; RESP 18; TEMP 98.4; O2SAT 95
--- NOTE | 2017-09-09 05:27 | HHI.PR ---
Subjective Remarks patient seen bedside, resting comfortably. Patient states her pain is 8/10. She has noticed slight improvement in her pain since being in the hospital. Objective Vital Signs Date Time Temp Pulse Resp B/P (MAP) Pulse Ox O2 Delivery O2 Flow Rate FiO2 09/09/17 04:00 98.4 75 18 116/57 (76) 95 09/08/17 21:36 Room Air 09/08/17 20:00 98.9 72 18 127/60 (82) 98 09/08/17 16:35 97.6 77 20 137/61 (86) 100 09/08/17 12:17 98.8 71 20 108/76 (87) 99 09/08/17 08:40 98.2 70 20 108/67 (81) 99 I/O 09/08/17 09/08/17 09/08/17 09/09/17 09/09/17 09/09/17 07:00 15:00 23:00 07:00 15:00 23:00 Intake Total 788 ml 820 ml 100 ml 362.2 ml Balance 788 ml 820 ml 100 ml 362.2 ml Intake Oral 0 ml 120 ml IV Total 788 ml 700 ml 100 ml 362.2 ml # Voids 2 3 # Bowel Movements 0 0 Result Diagram: 09/07/17 2100 09/07/17 2100 Imaging Last Impressions Lower Extremity Ultrasound 09/07/17 0000 Signed Impressions: Service Date/Time: Thursday, September 07, 2017 20:59 - CONCLUSION: No evidence of DVT. Nikolas Guerrero MD Foot MRI 09/07/17 0000 Signed Impressions: Service Date/Time: Thursday, September 07, 2017 22:03 - CONCLUSION: 1. Possible osteomyelitis in the fifth metatarsal with marrow edema and some marrow enhancement postcontrast. Patchy marrow edema also present at other locations in the foot without significant marrow enhancement to suggest osteomyelitis. There is soft tissue swelling and some enhancement in the lateral foot possibly related to traumatic injury or inflammatory change. Micky Velazco MD Ankle X-Ray 09/07/17 0000 Signed Impressions: Service Date/Time: Thursday, September 07, 2017 20:34 - CONCLUSION: Soft tissue swelling over the lateral malleolus. No acute fracture or joint dislocation. Nikolas Guerrero MD Ankle MRI 09/07/17 0000 Signed Impressions: Service Date/Time: Thursday, September 07, 2017 22:03 - CONCLUSION: 1. There is diffuse nonspecific edema in the subcutaneous soft tissues that surrounding the ankle. 2. There is normal signal within the bony structures. No evidence of osteomyelitis. Nikolas Guerrero MD Other Results Laboratory Tests Test 09/07/17 21:00 White Blood Count 6.9 TH/MM3 Red Blood Count 4.17 MIL/MM3 Hemoglobin 12.3 GM/DL Hematocrit 36.2 % Mean Corpuscular Volume 86.9 FL Mean Corpuscular Hemoglobin 29.5 PG Mean Corpuscular Hemoglobin Concent 33.9 % Red Cell Distribution Width 14.7 % Platelet Count 287 TH/MM3 Mean Platelet Volume 9.4 FL Neutrophils (%) (Auto) 52.3 % Lymphocytes (%) (Auto) 33.5 % Monocytes (%) (Auto) 12.1 % Eosinophils (%) (Auto) 1.2 % Basophils (%) (Auto) 0.9 % Neutrophils # (Auto) 3.6 TH/MM3 Lymphocytes # (Auto) 2.3 TH/MM3 Monocytes # (Auto) 0.8 TH/MM3 Eosinophils # (Auto) 0.1 TH/MM3 Basophils # (Auto) 0.1 TH/MM3 CBC Comment DIFF FINAL Differential Comment Prothrombin Time 11.6 SEC Prothromb Time International Ratio 1.1 RATIO Activated Partial Thromboplast Time 26.1 SEC Blood Urea Nitrogen 9 MG/DL Creatinine 0.92 MG/DL Random Glucose 87 MG/DL Calcium Level 9.5 MG/DL Sodium Level 139 MEQ/L Potassium Level 3.5 MEQ/L Chloride Level 103 MEQ/L Carbon Dioxide Level 29.8 MEQ/L Anion Gap 6 MEQ/L Estimat Glomerular Filtration Rate 62 ML/MIN Total Creatine Kinase 129 U/L Objective Remarks Vascular: DP/ PT palpable 2/4. Capillary refill time under 3 seconds to all digits of the left foot. Edema noted to left foot and ankle, resolving and improved. Neuro: No hyperalgesia noted. Gross sensation intact. Reported dullness to left lower extremity. Derm: No open lesions normal temperature turgor left lower extremity. Cicatrix Noted to left lower extremity from previous surgery MSK: active passive dorsiflexion plantar flexion of digits to left foot. Manual muscle testing with guarding however strength intact, improvement noted since yesterday. Pain on palpation to the tarsometatarsal joint as well as lateral ankle at CFL and ATFL. Medications and IVs Current Medications Medications (Trade) Dose Ordered Sig/Cheri Route Start Time Stop Time Status Last Admin Pharmacy Profile Note 0 ml @ 0 mls/hr UNSCH OTHER 09/08/17 00:15 Sodium Chloride 1,000 ml @ 100 mls/hr Q10H IV 09/08/17 00:07 09/09/17 02:01 (NS Flush) 2 ml UNSCH PRN IV FLUSH 09/08/17 00:15 (NS Flush) 2 ml BID IV FLUSH 09/08/17 09:00 09/08/17 21:00 (Zofran Inj) 4 mg Q6H PRN IVP 09/08/17 00:15 (Tylenol) 650 mg Q6H PRN PO 09/08/17 00:15 (Ann-Colace) 1 tab BID PO 09/08/17 09:00 (Milk Of Magnesia Liq) 30 ml Q12H PRN PO 09/08/17 00:15 (Senokot) 17.2 mg Q12H PRN PO 09/08/17 00:15 (Dulcolax Supp) 10 mg DAILY PRN RECTAL 09/08/17 00:15 (Lactulose Liq) 30 ml DAILY PRN PO 09/08/17 00:15 (Lipitor) 40 mg HS PO 09/08/17 21:00 09/08/17 21:27 (Plaquenil) 200 mg BID PO 09/08/17 09:00 09/08/17 21:28 (Ativan) 0.5 mg Q8H PRN PO 09/08/17 00:15 (Protonix) 40 mg DAILY PO 09/08/17 09:00 09/08/17 10:09 (Desyrel) 25 mg HS PO 09/08/17 21:00 09/08/17 21:28 Piperacillin Sod/ Tazobactam Sod 100 ml @ 200 mls/hr Q6HR IV 09/08/17 06:00 09/09/17 01:05 (Pill Splitter) 1 ea UNSCH PRN OTHER 09/08/17 00:30 (Morphine Inj) 2 mg Q3H PRN SQ 09/08/17 10:45 (Morphine Inj) 4 mg Q3H PRN IV PUSH 09/08/17 10:45 09/08/17 21:29 Vancomycin HCl 1250 mg/Sodium Chloride 262.5 ml @ 250 mls/hr Q24H IV 09/09/17 01:00 09/09/17 02:00 Miscellaneous Information SPECIFIC LAB TO BE YARY... ONCE ONCE .XX 09/11/17 00:45 09/11/17 00:46 Assessment and Plan Assessment and Plan 61-year-old female with left lower extremity edema secondary to trauma Patient examined and evaluated with all questions answered MRI suspicious for osteomyelitis fifth digit Low index of suspicion for osteomyelitis as patient as an does not have a history of open wound and does have a history of recent right fifth digit fracture Low index of suspicion for compartment syndrome, if no improvement noted will consider a compartment check Recommend fracture boot for patient we will place orders Patient remain limited weight-bearing to left lower extremity patient okay to be DC per Podiatry, oral antibiotics may not be necessary her patient to go home with Patient to follow up in office with myself within 1 week of discharge Jaja Brewer DPM Sep 09, 2017 05:27
[2017-09-09] MEDS: PANTOPRAZOLE SOD 40 MG DELAYED RELEASE TAB PO SCH (08:00)
[2017-09-09] MEDS: DOCUSATE SODIUM 50 MG/SENNA 8.6 MG TAB PO SCH (08:00)
[2017-09-09] MEDS: SODIUM CHLORIDE 0.9% FLUSH 10 ML FLUSH IV FLUSH SCH (08:00)
[2017-09-09] MEDS: HYDROXYCHLOROQUINE SULFATE 200 MG TAB PO SCH (08:00)
[2017-09-09 08:46] VITALS: BP 111/56; PULSE 74; RESP 20; TEMP 98.6; O2SAT 99
[2017-09-09 09:56] LABS: AUTOMATED NEUTROPHIL # 3.3 TH/MM3 (1.8-7.7); BASOPHIL % 0.9 % (0.0-2.0); EOSINOPHIL # 0.1 TH/MM3 (0-0.4); EOSINOPHIL % 1.9 % (0.0-4.0); HEMOGLOBIN 10.7 GM/DL (11.6-15.3); LYMPH % 27.3 % (9.0-44.0); LYMPHOCYTE # 1.5 TH/MM3 (1.0-4.8); MEAN CELL VOLUME 87.3 FL (80.0-100.0); MEAN CORPUSCULAR HEMOGLOBIN 29.2 PG (27.0-34.0); MEAN CORPUSCULAR HGB CONC 33.5 % (32.0-36.0); MEAN PLATELET VOLUME 9.1 FL (7.0-11.0); MONO % 10.2 % (0.0-8.0); MONOCYTE # 0.6 TH/MM3 (0-0.9); NEUT % 59.7 % (16.0-70.0); PLATELET COUNT 241 TH/MM3 (150-450); RED BLOOD COUNT 3.67 MIL/MM3 (4.00-5.30); RED CELL DISTRIBUTION WIDTH 14.3 % (11.6-17.2); WHITE BLOOD COUNT 5.5 TH/MM3 (4.0-11.0)
[2017-09-09 10:15] LABS: ALBUMIN 3.4 GM/DL (3.4-5.0); AST (GOT) 28 U/L (15-37); BICARBONATE 27.7 MEQ/L (21.0-32.0); BLOOD UREA NITROGEN 6 MG/DL (7-18); CALCIUM 8.7 MG/DL (8.5-10.1); CHLORIDE 107 MEQ/L (98-107); CREATININE 0.85 MG/DL (0.50-1.00); GLOMERULAR FILTRATION RATE 68 ML/MIN (>89); GLUCOSE,RANDOM 87 MG/DL (74-106); SODIUM (NA) 143 MEQ/L (136-145)
[2017-09-09 10:20] LABS: ALKALINE PHOSPHATASE 147 U/L (45-117); ALT (GPT) 31 U/L (10-53); TOTAL BILIRUBIN ADULT 1.5 MG/DL (0.2-1.0); TOTAL PROTEIN 6.4 GM/DL (6.4-8.2)
[2017-09-09] MEDS ORDERED: NORC5TAB PO (11:08)
--- NOTE | 2017-09-09 11:13 | HHI.DCPOC ---
Discharge Care Plan Diagnosis: (1) Intractable pain (2) Edema of left foot (3) Toe fracture Goals to Promote Your Health * To prevent worsening of your condition and complications * To maintain your health at the optimal level Directions to Meet Your Goals Take your medications as prescribed Follow your dietary instruction Follow activity as directed Keep your appointments as scheduled Take your immunizations and boosters as scheduled If your symptoms worsen call your PCP, if no PCP go to Urgent Care Center or Emergency Room Smoking is Dangerous to Your Health. Avoid second hand smoke Call the 24-hour hour crisis hotline for domestic abuse at Aannd Berg MD Sep 09, 2017 11:13
--- NOTE | 2017-09-09 11:19 | HHI.DS ---
Discharge Summary Admission Date Sep 08, 2017 at 00:10 Discharge Date: Sep 09, 2017 Admitting Diagnosis intractable left foot pain with swelling, r/o osteomyelitis (1) Toe fracture ICD Code: S92.919A - Unspecified fracture of unspecified toe(s), initial encounter for closed fracture Diagnosis: Principal Status: Acute (2) Intractable pain ICD Code: R52 - Pain, unspecified Status: Acute (3) Edema of left foot ICD Code: R60.0 - Localized edema Diagnosis: Principal Status: Acute (4) Lupus ICD Code: L93.0 - Discoid lupus erythematosus Diagnosis: Principal Status: Chronic Procedures none Brief History - From Admission This is a 61-year-old female with a PMH of HTN, Hyperlipidemia, COPD and Lupus who presented to ER with complaints of left foot pain and swelling. Seen in ER on 08/23/17 for similar symptoms, found to have left fifth toe fracture and placed in splint. Seen by Dr. Tse w/ Podiatry on 09/03/17 and was noted to have worsening swelling/pain, unable to undergo MRI as outpatient due to insurance authorization. Today, reports worsening pain. Pain is constant, 10/ 10, sharp, non-radiating, worse w/ movement. On arrival, BP 185/87, HR 82, O2 sat 97% on RA, Afebrile. Skin unremarkable. Chemistry essentially unremarkable except for GFR 62. INR 1.1. Ankle X-ray was soft tissue swelling over lateral malleolus. Ankle MRI with diffuse nonspecific edema. Foot MRI with possible osteomyelitis of fifth metatarsal with marrow edema and marrow enhancement. US LE negative for DVT. Dr. Skaggs consulted, recommended IV Abx w/ likely surgical intervention. CBC/BMP: 09/09/17 0910 09/09/17 0910 Significant Findings Laboratory Tests Test 09/07/17 21:00 09/09/17 09:10 Monocytes (%) (Auto) 12.1 % (0.0-8.0) 10.2 % (0.0-8.0) Estimat Glomerular Filtration Rate 62 ML/MIN (>89) 68 ML/MIN (>89) Red Blood Count 3.67 MIL/MM3 (4.00-5.30) Hemoglobin 10.7 GM/DL (11.6-15.3) Hematocrit 32.0 % (35.0-46.0) Blood Urea Nitrogen 6 MG/DL (7-18) Alkaline Phosphatase 147 U/L (45-117) Total Bilirubin 1.5 MG/DL (0.2-1.0) Imaging Last Impressions Lower Extremity Ultrasound 09/07/17 Signed Impressions: Service Date/Time: Thursday, September 07, 2017 20:59 - CONCLUSION: No evidence of DVT. Nikolas Guerrero MD Foot MRI 09/07/17 Signed Impressions: Service Date/Time: Thursday, September 07, 2017 22:03 - CONCLUSION: 1. Possible osteomyelitis in the fifth metatarsal with marrow edema and some marrow enhancement postcontrast. Patchy marrow edema also present at other locations in the foot without significant marrow enhancement to suggest osteomyelitis. There is soft tissue swelling and some enhancement in the lateral foot possibly related to traumatic injury or inflammatory change. Micky Velazco MD Ankle X-Ray 09/07/17 Signed Impressions: Service Date/Time: Thursday, September 07, 2017 20:34 - CONCLUSION: Soft tissue swelling over the lateral malleolus. No acute fracture or joint dislocation. Nikolas Guerrero MD Ankle MRI 09/07/17 Signed Impressions: Service Date/Time: Thursday, September 07, 2017 22:03 - CONCLUSION: 1. There is diffuse nonspecific edema in the subcutaneous soft tissues that surrounding the ankle. 2. There is normal signal within the bony structures. No evidence of osteomyelitis. Nikolas Guerrero MD Pt update on day of discharge Patient states that pain is almost completely resolved. states pain improved substantially after dresing was changed by Dr Brewer. Pt Condition on Discharge: Stable Discharge Disposition: Discharge Home Discharge Time: <= 30 minutes Discharge Instructions DIET: Follow Instructions for: As Tolerated, No Restrictions Activities you can perform: See Additionl Instruction Other Activity Instructions: Patient remain limited weight-bearing to left lower extremity Follow up Referrals: Podiatry - 1 Week with Jaja Brewer DPM New Medications: Hydrocodone-Acetaminophen ([place]) 5 Mg-325 Mg Tab 1 TAB PO Q4H PRN for PAIN, #30 TAB 0 Refills Continued Medications: Aspirin (Aspirin Children's) 81 Mg Chew 81 MG CHEW DAILY, TAB 0 Refills Atorvastatin (Atorvastatin) 40 Mg Tab 40 MG PO HS for Cholesterol Management, #30 TAB 0 Refills Hydroxychloroquine (Plaquenil) 200 Mg Tab 200 MG PO BID, #60 TAB 0 Refills Take with food Lorazepam (Lorazepam) 0.5 Mg Tab 0.5 MG PO Q8H PRN for ANXIETY, TAB 0 Refills Methotrexate (Methotrexate) 2.5 Mg Tab 7.5 MG PO Q7D, TAB 0 Refills Pantoprazole (Protonix) 40 Mg Tab 40 MG PO DAILY for Reflux, #30 TAB 0 Refills Trazodone (Trazodone) 50 Mg Tab 25 MG PO HS for Control Depression, #30 TAB 0 Refills [Albuterol Sulfate] () Anand Berg MD Sep 09, 2017 11:19
[2017-09-09 12:17] VITALS: BP 121/58; PULSE 84; RESP 20; TEMP 98.2; O2SAT 99
[2017-09-11] MEDS ORDERED: PHARMACY ORDERED LAB ONE (00:45)
== END 2017-09-09 13:36 | disposition home or self-care (01) | DRG 948 ==
LOC: NEPD 16:10 → NEDA 23:56 → OBSVTOIN 09-08 00:10 → N04B 09-08 00:48
PROVIDERS: ADMIT Hospitalist; ATTEND Hospitalist
DX: R60.0 Localized edema (principal); I10 Essential (primary) hypertension; J44.9 Chronic obstructive pulmonary disease, unspecified; S92.512D Displaced fracture of proximal phalanx of left lesser toe(s), subsequent encounter for fracture with routine healing; X58.XXXD Exposure to other specified factors, subsequent encounter; K21.9 Gastro-esophageal reflux disease without esophagitis; E78.5 Hyperlipidemia, unspecified; L93.0 Discoid lupus erythematosus
CPT/HCPCS: 73610; 73720; 73723; 80048; 80053; 82550; 85025; 85610; 85730; 93971; 96374; A9579; J2270; J2543; J3370; J7030; J7050; L2114